=== PATIENT | female | born 1985 | race American Indian/Alaskan Native ===

== ENCOUNTER 2016-11-03 11:31 | Emergency (ER) | payer MEDICAID ==
[2016-11-03 12:19] VITALS: BP 97/68
--- NOTE | 2016-11-03 13:14 | EDM.PDOC ---
Scribed by Rita Cline 11/03/16 1309 for Hal Griffin MD ED HPI GENERAL MEDICAL PROBLEM - General Chief Complaint: General Stated Complaint: [id number] RIGHT SIDE RIBS FELL Time Seen by Provider: 11/03/16 12:08 Source of Information: Reports: Patient, RN, RN Notes Reviewed History Limitations: Reports: No Limitations - History of Present Illness INITIAL COMMENTS - FREE TEXT/NARRATIVE: Complaint of right rib pain substernal from a fall onto concrete about 7 to 9 days ago. Patient reports it hurts to breath and move. Denies cough, fever or SOB. Location: Reports: Chest Quality: Reports: Ache Severity: Severe Improves with: Reports: None Worsens with: Reports: None Associated Symptoms: Reports: No Other Symptoms Right Lower Chest Pain Score (Numeric/FACES): 8 - Related Data Allergies Allergy/AdvReac Type Severity Reaction Status Date / Time vancomycin Allergy Other Verified 11/03/16 12:18 Home Meds: Home Meds clonazePAM [Clonazepam] 0.5 mg PO DAILY 10/20/13 [History] Past Medical History - Past Health History Medical/Surgical History: Denies Medical/Surgical History HEENT History: Reports: Impaired Vision Other HEENT History: wears glasses Cardiovascular History: Reports: None Respiratory History: Reports: None Gastrointestinal History: Reports: None Genitourinary History: Reports: None 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 Other OB/BYN History: x2 Musculoskeletal History: Reports: None Neurological History: Reports: None Psychiatric History: Reports: Depression, Panic Attack Endocrine/Metabolic History: Reports: None Hematologic History: Reports: None Immunologic History: Reports: None Oncologic (Cancer) History: Reports: None Dermatologic History: Reports: None - Infectious Disease History Infectious Disease History: Reports: Chicken Pox - Past Surgical History Head Surgeries/Procedures: Reports: None Social & Family History - Family History Family Medical History: Noncontributory - Tobacco Use Smoking Status *Q: Current Every Day Smoker Years of Tobacco use: 10 Packs/Tins Daily: 0.5 Used Tobacco, but Quit: No Second Hand Smoke Exposure: No - Caffeine Use Caffeine Use: Reports: Soda - Alcohol Use Days Per Week of Alcohol Use: 0 - Recreational Drug Use Recreational Drug Use: No Drug Use in Last 12 Months: No - Living Situation & Occupation Living situation: Reports: with Significant Other Occupation: Employed ED [facility] GENERAL - Review of Systems Review Of Systems: ROS reveals no pertinent complaints other than HPI. ED EXAM, GENERAL - Physical Exam Exam: See Below Exam Limited By: No Limitations General Appearance: Alert, WD/WN, No Apparent Distress Neck: Normal Inspection, Supple, Non-Tender, Full Range of Motion Respiratory/Chest: Other (Except resoling bruises at right posterior and lateral chest wall with tenderness at middle ribs. No visible swelling or deformity. ) GI/Abdominal: Normal Bowel Sounds, Soft, Non-Tender, No Organomegaly, No Distention, No Abnormal Bruit, No Mass (Female) Exam: Deferred Rectal (Female) Exam: Deferred Back Exam: Normal Inspection, Full Range of Motion, NT Extremities: Normal Inspection, Normal Range of Motion, Non-Tender, Normal Capillary Refill, No Pedal Edema Neurological: Alert, Oriented, CN II-XII Intact, Normal Cognition, Normal Gait, Normal Reflexes, No Motor/Sensory Deficits Psychiatric: Normal Affect, Normal Mood Course - Vital Signs Last Recorded V/S: Last Vital Signs Temp 36.9 C 11/03/16 12:00 Pulse 76 11/03/16 12:00 Resp 18 11/03/16 12:00 BP 97/68 11/03/16 12:00 Pulse Ox 100 11/03/16 12:00 - Radiology Interpretation Free Text/Narrative:: Right ribs: Normal right rib x-rays. See rad report. Departure - Departure Time of Disposition: 13:08 Disposition: Home, Self-Care 01 Condition: Good Clinical Impression: Chest wall contusion Qualifiers: Encounter type: initial encounter Laterality: right Qualified Code(s): S20.211A - Contusion of right front wall of thorax, initial encounter - Discharge Information Instructions: Chest Wall Pain, [id number], Contusion, [id number] Forms: ED Department Discharge Additional Instructions: Tylenol or Ibuprofen as needed pain. Follow up in clinic in 1 to 2 weeks if not improving. I have read and agree with the documentation that has been completed regarding this visit. By signing this record, I attest that the documentation was completed in my physical presence and is an accurate record of the encounter.
== END 2016-11-03 13:19 | disposition home or self-care (01) ==
LOC: DL.ED 11:31
DX: S20.211A Contusion of right front wall of thorax, initial encounter (principal); F32.9 Major depressive disorder, single episode, unspecified; F41.0 Panic disorder [episodic paroxysmal anxiety]; F17.210 Nicotine dependence, cigarettes, uncomplicated; Z79.899 Other long term (current) drug therapy; Z88.1 Allergy status to other antibiotic agents; W01.0XXA Fall on same level from slipping, tripping and stumbling without subsequent striking against object, initial encounter
CPT/HCPCS: 71100-RT; 99283

== ENCOUNTER 2016-11-21 16:47 | Emergency (ER) | payer MEDICAID ==
[2016-11-21 16:59] VITALS: BP 134/98
[2016-11-21] MEDS ORDERED: MVI, Adult with Vitamin K 10 ML, Folic Acid 1 MG, Thiamine 100 MG in Lactated Ringers 1... IV ONE ×4 (17:02)
--- NOTE | 2016-11-21 17:13 | EDM.PDOCBH ---
ED HPI GENERAL MEDICAL PROBLEM - General Chief Complaint: Behavioral/Psych Stated Complaint: GOING TO PASS OUT, ANXIETY, [id number] Time Seen by Provider: 11/21/16 17:00 Source of Information: Reports: Patient History Limitations: Reports: No Limitations - History of Present Illness INITIAL COMMENTS - FREE TEXT/NARRATIVE: This 31 yo female patient reports to the ED with a panic/anxiety attack. The patient reports she has been drinking ETOH daily for the past 5 days and has had similar symptoms after drinking in the past. The patient reports she is not able to fill her anxiety medications until tomorrow. The patient reports her hands have been numb and she feels jittery. Onset: Today, Sudden Duration: Constant, Getting Worse Location: Reports: Generalized Quality: Reports: Other Severity: Severe Improves with: Reports: None Worsens with: Reports: None Associated Symptoms: Reports: No Other Symptoms - Related Data Allergies Allergy/AdvReac Type Severity Reaction Status Date / Time vancomycin Allergy Other Verified 11/21/16 16:53 Home Meds: Home Meds clonazePAM [Clonazepam] 0.5 mg PO DAILY 10/20/13 [History] hydrOXYzine Pamoate [Hydroxyzine Pamoate] 50 mg PO TID PRN 11/21/16 [History] Past Medical History - Past Health History Medical/Surgical History: Denies Medical/Surgical History HEENT History: Reports: Impaired Vision Other HEENT History: wears glasses Cardiovascular History: Reports: None Respiratory History: Reports: None Gastrointestinal History: Reports: None Genitourinary History: Reports: None 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 Other OB/BYN History: x2 Musculoskeletal History: Reports: None Neurological History: Reports: None Psychiatric History: Reports: Depression, Panic Attack Endocrine/Metabolic History: Reports: None Hematologic History: Reports: None Immunologic History: Reports: None Oncologic (Cancer) History: Reports: None Dermatologic History: Reports: None - Infectious Disease History Infectious Disease History: Reports: Chicken Pox - Past Surgical History Head Surgeries/Procedures: Reports: None Social & Family History - Family History Family Medical History: Noncontributory - Tobacco Use Smoking Status *Q: Current Every Day Smoker Years of Tobacco use: 10 Packs/Tins Daily: 0.5 Used Tobacco, but Quit: No Second Hand Smoke Exposure: No - Caffeine Use Caffeine Use: Reports: Soda - Alcohol Use Days Per Week of Alcohol Use: 0 - Recreational Drug Use Recreational Drug Use: No Drug Use in Last 12 Months: No - Living Situation & Occupation Living situation: Reports: with Significant Other Occupation: Employed ED ROS GENERAL - Review of Systems Review Of Systems: ROS reveals no pertinent complaints other than HPI. ED EXAM, BEHAVIORAL HEALTH - Physical Exam Exam: See Below Exam Limited By: No Limitations General Appearance: Alert, WD/WN, Moderate Distress, Thin Eye Exam: Bilateral Eye: EOMI, Normal Inspection, PERRL Ears: Normal External Exam, Normal Canal, Hearing Grossly Normal, Normal TMs Nose: Normal Inspection, Normal Mucosa, No Blood Throat/Mouth: Normal Inspection, Normal Lips, Normal Teeth, Normal Gums, Normal Oropharynx, Normal Voice, No Airway Compromise Head: Atraumatic, Normocephalic Neck: Normal Inspection, Supple, Non-Tender, Full Range of Motion Respiratory/Chest: No Respiratory Distress, Lungs Clear, Normal Breath Sounds, No Accessory Muscle Use, Chest Non-Tender Cardiovascular: Normal Peripheral Pulses, Regular Rate, Rhythm, No Edema, No Gallop, No JVD, No Murmur, No Rub GI/Abdominal: Normal Bowel Sounds, Soft, Non-Tender, No Organomegaly, No Distention, No Abnormal Bruit, No Mass (Female) Exam: Deferred Rectal (Female) Exam: Deferred Back Exam: Normal Inspection, Full Range of Motion, NT Extremities: Normal Inspection, Normal Range of Motion, Non-Tender, Normal Capillary Refill, No Pedal Edema Neurological: Alert, CN II-XII Intact, Normal Cognition, No Motor/Sensory Deficits, Oriented x 3 Psychiatric: Restless, Agitated Skin Exam: Warm, Dry, Intact, Normal color, No rash COURSE, BEHAVIORAL HEALTH COMP - Course Vital Signs: Last Vital Signs Temp 38.3 C H 11/21/16 16:56 Pulse 100 11/21/16 16:56 Resp 18 11/21/16 16:56 BP 134/98 H 11/21/16 16:56 Pulse Ox 99 11/21/16 16:56 Orders, Labs, Meds: Active Orders 24 hr Category Date Time Status MVI, Adult with Vitamin K [Infuvite Adult] 10 ml Med 11/21/16 17:02 Active Folic Acid 1 mg Thiamine [Vitamin B-1] 100 mg Lactated Ringers [Ringers, Lactated] 1,000 ml IV ONETIME Medication Orders Multivitamins/Minerals 10 ml/Folic Acid 1 mg/ Thiamine HCl 100 mg/ Lactated Ringer's 1,011.2 mls @ 999 mls/hr IV ONETIME ONE Stop: 11/21/16 18:02 Last Admin: 11/21/16 17:13 Dose: 999 mls/hr Laboratory Tests 11/21/16 11/21/16 Range/Units 17:10 17:10 WBC 7.7 (5.0-10.0) 10^3/uL RBC 4.27 (4.2-5.4) 10^6/uL Hgb 12.9 (12.0-16.0) g/dL Hct 38.8 (37.0-47.0) % MCV 90.9 (80-100) fL MCH 30.2 (27.0-34.0) pg MCHC 33.2 (33.0-35.0) g/dL Plt Count 218 (150-450) 10^3/uL Neut % (Auto) 78.2 H (42.2-75.2) % Lymph % (Auto) 14.6 L (20.5-50.1) % [place] % (Auto) 6.1 (2-8) % Eos % (Auto) 1.0 (1.0-3.0) % Baso % (Auto) 0.1 (0.0-1.0) % Sodium 137 (135-145) mmol/L Potassium 3.6 (3.6-5.0) mmol/L Chloride 100 L (101-111) mmol/L Carbon Dioxide 27.0 (21.0-31.0) mmol/L Anion Gap 13.6 BUN 10 (7-18) mg/dL Creatinine 0.5 L (0.6-1.3) mg/dL Est Cr Clr Drug Dosing 131.30 mL/min Estimated GFR (MDRD) > 60 BUN/Creatinine Ratio 20.00 Glucose 87 (74-105) mg/dL Calcium 8.9 (8.4-10.2) mg/dl Total Bilirubin 0.8 (0.2-1.0) mg/dL AST 23 (10-42) IU/L ALT 16 (10-60) IU/L Alkaline Phosphatase 84 (42-121) IU/L Total Protein 7.4 (6.7-8.2) g/dl Albumin 4.2 (3.2-5.5) g/dl Globulin 3.2 Albumin/Globulin Ratio 1.31 Medications Generic Name Dose Route Start Last Admin Trade Name Pepe PRN Reason Stop Dose Admin Multivitamins/Minerals 10 ml/ 1,011.2 mls @ 999 mls/hr 11/21/16 17:02 17:13 Folic Acid 1 mg/ Thiamine HCl IV 11/21/16 18:02 999 mls/hr 100 mg/ Lactated Ringer's ONETIME ONE Administration Discontinued Medications Generic Name Dose Route Start Last Admin Trade Name Pepe PRN Reason Stop Dose Admin Clonazepam 0.5 mg 11/21/16 17:19 11/21/16 17:25 Klonopin PO 11/21/16 17:20 0.5 mg ONETIME ONE Administration Departure - Departure Time of Disposition: 17:47 Disposition: Home, Self-Care 01 Condition: Fair Clinical Impression: Anxiety - Discharge Information Instructions: Panic Attacks, Gzwh-[id number] Forms: ED Department Discharge Care Plan Goals: The patient was advised of the examination and lab results during the visit. The patient was given a liter of fluids with multivitamins, thiamine and folic acid mixed in during the visit. The patient was also given an oral dose of Klonopin while in the ED. The patient was discharged with a script for Klonopin (0.5 mg) #4 to take 1 by mouth 2 times per day. The [facility] and further treatment. If the patient has any additional symptoms or concerns, the patient should visit her primary care facility or return to the emergency department. - My Orders Last 24 Hours: My Active Orders 11/21/16 17:02 MVI, Adult with Vitamin K [Infuvite Adult] 10 ml Folic Acid 1 mg Thiamine [ Vitamin B-1] 100 mg Lactated Ringers [Ringers, Lactated] 1,000 ml IV ONETIME - Assessment/Plan Last 24 Hours: My Active Orders 11/21/16 17:02 MVI, Adult with Vitamin K [Infuvite Adult] 10 ml Folic Acid 1 mg Thiamine [ Vitamin B-1] 100 mg Lactated Ringers [Ringers, Lactated] 1,000 ml IV ONETIME
[2016-11-21] MEDS ORDERED: ClonazePAM 0.5 MG Tab PO ONE (17:19)
[2016-11-21 17:45] LABS: CHLORIDE,CL 100 mmol/L (101-111); SODIUM,NA 137 mmol/L (135-145)
== END 2016-11-21 18:30 | disposition home or self-care (01) ==
LOC: DL.ED 16:47
DX: F41.9 Anxiety disorder, unspecified (principal); Z88.1 Allergy status to other antibiotic agents; F17.210 Nicotine dependence, cigarettes, uncomplicated
CPT/HCPCS: 36415; 80053; 85025; 96365; 99284; A9270; J3411; J7120; J3490

== ENCOUNTER 2017-04-17 12:18 | Emergency (ER) | payer MEDICAID ==
--- NOTE | 2017-04-17 12:39 | EDM.PDOCBH ---
ED HPI GENERAL MEDICAL PROBLEM - General Chief Complaint: Behavioral/Psych Stated Complaint: by ambulance Time Seen by Provider: 04/17/17 12:20 Source of Information: Reports: Patient History Limitations: Reports: No Limitations - History of Present Illness INITIAL COMMENTS - FREE TEXT/NARRATIVE: This 32 yo female patient was brought to the emergency department by [facility] due to a panic attack. This patient reports she has had similar episodes in the past. The patient reports she took her Clonazepam at noon, but continued to have symptoms. The patient reports she has had increased stress in her life, but did not want to talk about it. Onset: Today Duration: Minutes:, Improving Location: Reports: Generalized Severity: Severe Improves with: Reports: None Worsens with: Reports: None Treatments FAN BLADE TRUER: Reports: Other Medication(s) - Related Data Allergies Allergy/AdvReac Type Severity Reaction Status Date / Time vancomycin Allergy Other Verified 11/21/16 16:53 Home Meds: Home Meds clonazePAM [Clonazepam] 0.5 mg PO DAILY 10/20/13 [History] hydrOXYzine Pamoate [Hydroxyzine Pamoate] 50 mg PO TID PRN 11/21/16 [History] Past Medical History - Past Health History Medical/Surgical History: Denies Medical/Surgical History HEENT History: Reports: Impaired Vision Other HEENT History: wears glasses Cardiovascular History: Reports: None Respiratory History: Reports: None Gastrointestinal History: Reports: None Genitourinary History: Reports: None 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 Other OB/BYN History: x2 Musculoskeletal History: Reports: None Neurological History: Reports: None Psychiatric History: Reports: Anxiety, Depression, Panic Attack Endocrine/Metabolic History: Reports: None Hematologic History: Reports: None Immunologic History: Reports: None Oncologic (Cancer) History: Reports: None Dermatologic History: Reports: None - Infectious Disease History Infectious Disease History: Reports: Chicken Pox - Past Surgical History Head Surgeries/Procedures: Reports: None Social & Family History - Family History Family Medical History: Noncontributory - Tobacco Use Smoking Status *Q: Never Smoker Years of Tobacco use: 10 Packs/Tins Daily: 0.5 Used Tobacco, but Quit: No Second Hand Smoke Exposure: No - Caffeine Use Caffeine Use: Reports: Soda - Alcohol Use Days Per Week of Alcohol Use: 0 Number of Drinks Per Day: 10 Total Drinks Per Week: 0 - Recreational Drug Use Recreational Drug Use: No Drug Use in Last 12 Months: No - Living Situation & Occupation Living situation: Reports: with Significant Other Occupation: Employed ED ROS GENERAL - Review of Systems Review Of Systems: ROS reveals no pertinent complaints other than HPI. ED EXAM, BEHAVIORAL HEALTH - Physical Exam Exam: See Below Exam Limited By: No Limitations General Appearance: Alert, WD/WN, No Apparent Distress Eye Exam: Bilateral Eye: EOMI, Normal Inspection, PERRL Ears: Normal External Exam, Normal Canal, Hearing Grossly Normal, Normal TMs Nose: Normal Inspection, Normal Mucosa, No Blood Throat/Mouth: Normal Inspection, Normal Lips, Normal Teeth, Normal Gums, Normal Oropharynx, Normal Voice, No Airway Compromise Head: Atraumatic, Normocephalic Neck: Normal Inspection, Supple, Non-Tender, Full Range of Motion Respiratory/Chest: No Respiratory Distress, Lungs Clear, Normal Breath Sounds, No Accessory Muscle Use, Chest Non-Tender Cardiovascular: Normal Peripheral Pulses, Regular Rate, Rhythm, No Edema, No Gallop, No JVD, No Murmur, No Rub GI/Abdominal: Normal Bowel Sounds, Soft, Non-Tender, No Organomegaly, No Distention, No Abnormal Bruit, No Mass (Female) Exam: Deferred Rectal (Female) Exam: Deferred Back Exam: Normal Inspection, Full Range of Motion, NT Extremities: Normal Inspection, Normal Range of Motion, Non-Tender, Normal Capillary Refill, No Pedal Edema Neurological: Alert, Normal Mood/Affect, CN II-XII Intact, Normal Cognition, Normal Gait, Normal Reflexes, No Motor/Sensory Deficits, Oriented x 3 Psychiatric: Alert, Normal Cognition, Oriented, Other (anxious) Skin Exam: Warm, Dry, Intact, Normal color, No rash COURSE, BEHAVIORAL HEALTH COMP - Course Vital Signs: Last Vital Signs Temp 36.8 C 04/17/17 12: Pulse 88 04/17/17 12:27 Resp 16 04/17/17 12:27 BP 122/84 04/17/17 12:27 Pulse Ox 98 04/17/17 12:27 Departure - Departure Time of Disposition: 12:35 Disposition: Home, Self-Care 01 Condition: Fair Clinical Impression: Anxiety - Discharge Information Instructions: Panic Attacks, [id number] Forms: ED Department Discharge Care Plan Goals: The patient was advised of the examination results during the visit. The patient was encouraged to continue to take her medications as prescribed. The patient was encouraged to follow-up with counseling as scheduled. If the patient has any additional symptoms or concerns, the patient was encouraged to follow-up with her primary care facility or return to the emergency department.
[2017-04-17 12:56] VITALS: BP 117/78
== END 2017-04-17 12:52 | disposition home or self-care (01) ==
LOC: DL.ED 12:18
DX: F41.9 Anxiety disorder, unspecified (principal); Z88.1 Allergy status to other antibiotic agents; Z79.899 Other long term (current) drug therapy
CPT/HCPCS: 99284

== ENCOUNTER 2017-09-15 14:35 | Emergency (ER) | payer MEDICAID ==
[2017-09-15 14:59] VITALS: BP 113/85
[2017-09-15] MEDS: diphenhydrAMINE 50 MG Cap PO ONE (15:18)
[2017-09-15] MEDS: methylPREDNISolone Sodium Succinate 125 MG/2 ML SDV IM ONE (15:57)
--- NOTE | 2017-09-15 18:41 | EDM.PDOC ---
Scribed by Rita Cline 09/15/17 [id number] for Natty Shankar NP ED HPI GENERAL MEDICAL PROBLEM - General Chief Complaint: Allergic Reaction Stated Complaint: [id number] POISON OAK/TEE ALLERGIC REACTION Time Seen by Provider: 09/15/17 15:37 Source of Information: Reports: Patient, RN, RN Notes Reviewed History Limitations: Reports: No Limitations - History of Present Illness INITIAL COMMENTS - FREE TEXT/NARRATIVE: Patient presents to ER with complaint of allergic reaction to possibly poison tee/oak. Exposed was Friday evening. Noticed itching on Friday after picking August berr. Today noticed her face swelling, blistering and weeping. Patient states she has used spray Benadryl. Onset Date: 09/13/17 Duration: Getting Worse Location: Reports: Generalized Quality: Reports: Ache Severity: Moderate Improves with: Reports: None Worsens with: Reports: None Associated Symptoms: Reports: No Other Symptoms Bilateral Eye Pain Score (Numeric/FACES): 10 - Related Data Allergies Allergy/AdvReac Type Severity Reaction Status Date / Time vancomycin Allergy Other Verified 09/15/17 14:57 Home Meds: Home Meds clonazePAM [Clonazepam] 0.5 mg PO DAILY 10/20/13 [History] hydrOXYzine Pamoate [Hydroxyzine Pamoate] 50 mg PO TID PRN 11/21/16 [History] Past Medical History - Past Health History Medical/Surgical History: Denies Medical/Surgical History HEENT History: Reports: Impaired Vision Other HEENT History: wears glasses Cardiovascular History: Reports: None Respiratory History: Reports: None Gastrointestinal History: Reports: None Genitourinary History: Reports: None 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 MACHINIST SUPERVISOR History: x2 Musculoskeletal History: Reports: None Neurological History: Reports: None Psychiatric History: Reports: Anxiety, Depression, Panic Attack Endocrine/Metabolic History: Reports: None Hematologic History: Reports: None Immunologic History: Reports: None Oncologic (Cancer) History: Reports: None Dermatologic History: Reports: None - Infectious Disease History Infectious Disease History: Reports: Chicken Pox - Past Surgical History Head Surgeries/Procedures: Reports: None Social & Family History - Family History Family Medical History: Noncontributory - Tobacco Use Smoking Status *Q: Current Every Day Smoker Years of Tobacco use: 12 Packs/Tins Daily: 0.5 Second Hand Smoke Exposure: No - Caffeine Use Caffeine Use: Reports: Soda - Recreational Drug Use Recreational Drug Use: No - Living Situation & Occupation Living situation: Reports: with Significant Other Occupation: Employed ED ROS ALLERGIC REACTION - Review of Systems Review Of Systems: ROS reveals no pertinent complaints other than HPI. ED EXAM GENERAL NO PERIP PULSE - Physical Exam Exam: See Below Exam Limited By: No Limitations General Appearance: Other (itching) Eye Exam: Bilateral Eye: EOMI, Normal Inspection, PERRL Ears: Normal External Exam, Normal Canal, Hearing Grossly Normal, Normal TMs Nose: Normal Inspection, Normal Mucosa, No Blood Throat/Mouth: Normal Inspection, Normal Lips, Normal Teeth, Normal Gums, Normal Oropharynx, Normal Voice, No Airway Compromise Head: Atraumatic, Normocephalic Neck: Normal Inspection, Supple, Non-Tender, Full Range of Motion Respiratory/Chest: No Respiratory Distress, Lungs Clear, Normal Breath Sounds, No Accessory Muscle Use, Chest Non-Tender Cardiovascular: Normal Peripheral Pulses, Regular Rate, Rhythm, No Edema, No Gallop, No JVD, No Murmur, No Rub GI/Abdominal: Normal Bowel Sounds, Soft, Non-Tender, No Organomegaly, No Distention, No Abnormal Bruit, No Mass (Female) Exam: Deferred Rectal (Female) Exam: Deferred Back Exam: Normal Inspection, Full Range of Motion, NT Extremities: Normal Inspection, Normal Range of Motion, Non-Tender, Normal Capillary Refill, No Pedal Edema Neurological: Alert, Oriented, CN II-XII Intact, Normal Cognition, Normal Gait, Normal Reflexes, No Motor/Sensory Deficits Psychiatric: Anxious, Other (itching) Skin Exam: Other (face blisters weeping. Red rash face, arms and legs. ) Lymphatic: No Adenopathy Course - Vital Signs Last Recorded V/S: Last Vital Signs Temp 99.8 F 09/15/17 14:56 Pulse 84 09/15/17 14:56 Resp 18 09/15/17 14:56 BP 113/85 09/15/17 14:56 Pulse Ox 88 L 09/15/17 14:56 - Orders/Labs/Meds Meds: Medications Discontinued Medications Generic Name Dose Route Start Last Admin Trade Name Freq PRN Reason Stop Dose Admin Diphenhydramine HCl 50 mg 09/15/17 15:13 09/15/17 15:18 Benadryl PO 09/15/17 15:14 50 mg ONETIME ONE Administration Methylprednisolone Sodium Succinate 125 mg 09/15/17 15:49 09/15/17 15:57 Solu-Medrol IM 09/15/17 15:50 125 mg ONETIME ONE Administration Departure - Departure Time of Disposition: 16:34 Disposition: Home, Self-Care 01 Condition: Fair Clinical Impression: Poison tee dermatitis Contact dermatitis Qualifiers: Contact dermatitis type: irritant Contact dermatitis trigger: non-food plants Qualified Code(s): L24.7 - Irritant contact dermatitis due to plants, except food - Discharge Information *PRESCRIPTION DRUG MONITORING PROGRAM REVIEWED*: No *COPY OF PRESCRIPTION DRUG MONITORING REPORT IN PATIENT NOMAN: No Instructions: Allergies, Adult, Pyjp-ah-[id number], Contact Dermatitis, [id number] , Rash, [id number] Forms: ED Department Discharge Additional Instructions: May use Benadryl or Certrizine for antihistamine RX: Prednisone, Triamcinolone ointment Follow up with your primary care facility I have read and agree with the documentation that has been completed regarding this visit. By signing this record, I attest that the documentation was completed in my physical presence and is an accurate record of the encounter.
== END 2017-09-15 15:57 | disposition home or self-care (01) ==
LOC: DL.ED 14:35
DX: L23.7 Allergic contact dermatitis due to plants, except food (principal); L24.7 Irritant contact dermatitis due to plants, except food; F17.210 Nicotine dependence, cigarettes, uncomplicated; F41.9 Anxiety disorder, unspecified; F32.9 Major depressive disorder, single episode, unspecified; Z88.1 Allergy status to other antibiotic agents
CPT/HCPCS: 96372; 99283; J2930; Q0163

== ENCOUNTER 2017-10-11 17:33 | Emergency (ER) | payer MEDICAID ==
[2017-10-11] MEDS ORDERED: LORazepam 2 MG/ML Syringe IVPUSH ONE (17:40)
[2017-10-11] MEDS ORDERED: Sodium Chloride 0.9% 10 ML Syringe FLUSH PRN (17:40)
[2017-10-11] MEDS ORDERED: Sodium Chloride 0.9% 1,000 ML IV ONE (17:40)
[2017-10-11 18:20] LABS: ANION GAP 11.5; CHLORIDE,CL 99 mmol/L (101-111); SODIUM,NA 134 mmol/L (135-145)
--- NOTE | 2017-10-11 19:12 | EDM.PDOCBH ---
Scribed by Rita Cline 10/11/171911 for Hal Griffin MD ED HPI GENERAL MEDICAL PROBLEM - General Chief Complaint: Behavioral/Psych Stated Complaint: BY AMBULANCE Time Seen by Provider: 10/11/17 17:35 Source of Information: Reports: Patient, EMS, EMS Notes Reviewed, RN, RN Notes Reviewed History Limitations: Reports: Altered Mental Status - History of Present Illness INITIAL COMMENTS - FREE TEXT/NARRATIVE: Patient presents to ER by [facility] with complaint of tremor , headache, anxiety, and mild confusion which she attributes to running out of her clonazepam3 days ago. Patient states she was to have her medication refilled but the pharmacy did not receive the order. She began to feel anxious and have tremor last evening so she self medicated with alcohol. She denies any injury, fever, chills or other complaints. Onset: Gradual Duration: Getting Worse Location: Reports: Generalized Severity: Severe Improves with: Reports: None Worsens with: Reports: None Associated Symptoms: Reports: No Other Symptoms - Related Data Allergies Allergy/AdvReac Type Severity Reaction Status Date / Time vancomycin Allergy Other Verified 09/15/17 14:57 Home Meds: Home Meds clonazePAM [Clonazepam] 1 mg PO BID PRN 10/20/13 [History] hydrOXYzine pamoate [Hydroxyzine Pamoate] 50 mg PO TID PRN 11/21/16 [History] Past Medical History - Past Health History Medical/Surgical History: Denies Medical/Surgical History HEENT History: Reports: Impaired Vision Other HEENT History: wears glasses Cardiovascular History: Reports: None Respiratory History: Reports: None Gastrointestinal History: Reports: None Genitourinary History: Reports: None SOLE BUFFER History: Reports: None Other SOLE BUFFER History: x2 Musculoskeletal History: Reports: None Neurological History: Reports: None Psychiatric History: Reports: Anxiety, Depression, Panic Attack Endocrine/Metabolic History: Reports: None Hematologic History: Reports: None Immunologic History: Reports: None Oncologic (Cancer) History: Reports: None Dermatologic History: Reports: None - Infectious Disease History Infectious Disease History: Reports: Chicken Pox - Past Surgical History Head Surgeries/Procedures: Reports: None Social & Family History - Family History Family Medical History: Noncontributory - Caffeine Use Caffeine Use: Reports: Soda - Living Situation & Occupation Living situation: Reports: with Significant Other Occupation: Employed ED ROS GENERAL - Review of Systems Review Of Systems: ROS reveals no pertinent complaints other than HPI. ED EXAM, BEHAVIORAL HEALTH - Physical Exam Exam: See Below Exam Limited By: Other (mild confusion) General Appearance: Alert, Anxious Eye Exam: Bilateral Eye: EOMI, Nystagmus (lateral gaze), PERRL Ears: Normal External Exam, Normal Canal, Hearing Grossly Normal, Normal TMs Nose: Normal Inspection, Normal Mucosa, No Blood Throat/Mouth: Normal Lips, Normal Teeth, Normal Gums, Normal Oropharynx, Normal Voice, No Airway Compromise, Other (dry oral membranes) Head: Atraumatic, Normocephalic Neck: Normal Inspection, Supple, Non-Tender, Full Range of Motion Respiratory/Chest: No Respiratory Distress, Lungs Clear, Normal Breath Sounds, No Accessory Muscle Use, Chest Non-Tender Cardiovascular: Regular Rate, Rhythm, Tachycardia GI/Abdominal: Other (benign') (Female) Exam: Deferred Rectal (Female) Exam: Deferred Back Exam: Normal Inspection Extremities: Normal Inspection Neurological: Alert, No Motor/Sensory Deficits, Oriented x 3, Tremor ( significant to bilateral upper and lower extremities, lower face. ), Other ( mild confusion) Psychiatric: Tearful, Other (anxious) Skin Exam: Warm, Dry, Intact, Normal color, No rash COURSE, BEHAVIORAL HEALTH COMP - Course Vital Signs: Last Vital Signs Temp 36.9 C 10/11/17 17:36 Pulse 107 H 10/11/17 17:36 Resp 18 10/11/17 17:36 BP 132/96 H 10/11/17 17:36 Pulse Ox 98 10/11/17 17:36 Orders, Labs, Meds: Active Orders 24 hr Category Date Time Status Blood Glucose Check, Bedside [RC] ONETIME Care 10/11/17 17:40 Active Peripheral IV Care [RC] . DIRECTED Care 10/11/17 17:41 Active DRUG SCREEN URINE BIORAD [URCHEM] Stat Lab 10/11/17 18:15 Ordered HCG QUALITATIVE,URINE [URCHEM] Stat Lab 10/11/17 18:15 Ordered UA W/MICROSCOPIC [URIN] Stat Lab 10/11/17 18:15 Ordered Sodium Chloride 0.9% [Saline Flush] Med 10/11/17 17:40 Active 10 ml FLUSH ASDIRECTED PRN Peripheral IV Insertion Adult [OM.PC] Stat Oth 10/11/17 17:40 Ordered Medication Orders Sodium Chloride (Saline Flush) 10 ml FLUSH ASDIRECTED PRN PRN Reason: Keep Vein Open Last Admin: 10/11/17 17:42 Dose: 10 ml Laboratory Tests 10/11/17 10/11/17 10/11/17 Range/Units 17:50 17:50 18:15 WBC 5.1 (5.0-10.0) 10^3/uL RBC 4.14 L (4.2-5.4) 10^6/uL Hgb 12.6 (12.0-16.0) g/dL Hct 38.5 (37.0-47.0) % MCV 93.0 (80-100) fL MCH 30.4 (27.0-34.0) pg MCHC 32.7 L (33.0-35.0) g/dL Plt Count 223 (150-450) 10^3/uL Neut % (Auto) 70.5 (42.2-75.2) % Lymph % (Auto) 17.6 L (20.5-50.1) % [place] % (Auto) 9.1 H (2-8) % Eos % (Auto) 2.4 (1.0-3.0) % Baso % (Auto) 0.4 (0.0-1.0) % Sodium 134 L (135-145) mmol/L Potassium 3.5 L (3.6-5.0) mmol/L Chloride 99 L (101-111) mmol/L Carbon Dioxide 27.0 (21.0-31.0) mmol/L Anion Gap 11.5 BUN 10 (7-18) mg/dL Creatinine 0.4 L (0.6-1.3) mg/dL Est Cr Clr Drug Dosing 162.65 mL/min Estimated GFR (MDRD) > 60 BUN/Creatinine Ratio 25.00 Glucose 91 (74-105) mg/dL POC Glucose (70-105) mg/dl Calcium 8.8 (8.4-10.2) mg/dl Total Bilirubin 0.7 (0.2-1.0) mg/dL AST 24 (10-42) IU/L ALT 15 (10-60) IU/L Alkaline Phosphatase 51 (42-121) IU/L Total Protein 7.6 (6.7-8.2) g/dl Albumin 4.6 (3.2-5.5) g/dl Globulin 3.0 Albumin/Globulin Ratio 1.53 Urine Color Yellow (YELLOW) Urine Appearance Clear (CLEAR) Urine pH 7.5 (5.0-9.0) Ur Specific [place] 1.010 (1.005-1.030) Urine Protein Negative (NEGATIVE) Urine Glucose (UA) Negative (NEGATIVE) Urine Ketones Negative (NEGATIVE) Urine Occult Blood Negative (NEGATIVE) Urine Nitrite Negative (NEGATIVE) Urine Bilirubin Negative (NEGATIVE) Urine Urobilinogen 0.2 (0.2-1.0) mg/dL Ur Leukocyte Esterase Negative (NEGATIVE) Urine RBC Not seen /HPF Urine WBC Not seen (0-5/HPF) /HPF Ur Epithelial Cells Rare /HPF Urine Bacteria Rare (0-FEW/HPF) /HPF Urine HCG, Qual Urine Opiates Screen (NEGATIVE) Ur Oxycodone Screen (NEGATIVE) Urine Methadone Screen (NEGATIVE) Ur Barbiturates Screen (NEGATIVE) U Tricyclic Antidepress (NEGATIVE) Ur Phencyclidine Scrn (NEGATIVE) Ur Amphetamine Screen (NEGATIVE) U Methamphetamines Scrn (NEGATIVE) Urine MDMA Screen (NEGATIVE) U Benzodiazepines Scrn (NEGATIVE) Urine Cocaine Screen (NEGATIVE) U Marijuana (THC) Screen (NEGATIVE) Ethyl Alcohol < 5 mg/dL 10/11/17 10/11/17 10/11/17 Range/Units 18:15 18:15 18:29 WBC (5.0-10.0) 10^3/uL RBC (4.2-5.4) 10^6/uL Hgb (12.0-16.0) g/dL Hct (37.0-47.0) % MCV (80-100) fL MCH (27.0-34.0) pg MCHC (33.0-35.0) g/dL Plt Count (150-450) 10^3/uL Neut % (Auto) (42.2-75.2) % Lymph % (Auto) (20.5-50.1) % [place] % (Auto) (2-8) % Eos % (Auto) (1.0-3.0) % Baso % (Auto) (0.0-1.0) % Sodium (135-145) mmol/L Potassium (3.6-5.0) mmol/L Chloride (101-111) mmol/L Carbon Dioxide (21.0-31.0) mmol/L Anion Gap BUN (7-18) mg/dL Creatinine (0.6-1.3) mg/dL Est Cr Clr Drug Dosing mL/min Estimated GFR (MDRD) BUN/Creatinine Ratio Glucose (74-105) mg/dL POC Glucose 82 (70-105) mg/dl Calcium (8.4-10.2) mg/dl Total Bilirubin (0.2-1.0) mg/dL AST (10-42) IU/L ALT (10-60) IU/L Alkaline Phosphatase (42-121) IU/L Total Protein (6.7-8.2) g/dl Albumin (3.2-5.5) g/dl Globulin Albumin/Globulin Ratio Urine Color (YELLOW) Urine Appearance (CLEAR) Urine pH (5.0-9.0) Ur Specific [place] (1.005-1.030) Urine Protein (NEGATIVE) Urine Glucose (UA) (NEGATIVE) Urine Ketones (NEGATIVE) Urine Occult Blood (NEGATIVE) Urine Nitrite (NEGATIVE) Urine Bilirubin (NEGATIVE) Urine Urobilinogen (0.2-1.0) mg/dL Ur Leukocyte Esterase (NEGATIVE) Urine RBC /HPF Urine WBC (0-5/HPF) /HPF Ur Epithelial Cells /HPF Urine Bacteria (0-FEW/HPF) /HPF Urine HCG, Qual Negative Urine Opiates Screen Negative (NEGATIVE) Ur Oxycodone Screen Negative (NEGATIVE) Urine Methadone Screen Negative (NEGATIVE) Ur Barbiturates Screen Negative (NEGATIVE) U Tricyclic Antidepress Negative (NEGATIVE) Ur Phencyclidine Scrn Negative (NEGATIVE) Ur Amphetamine Screen Negative (NEGATIVE) U Methamphetamines Scrn Negative (NEGATIVE) Urine MDMA Screen Negative (NEGATIVE) U Benzodiazepines Scrn Negative (NEGATIVE) Urine Cocaine Screen Negative (NEGATIVE) U Marijuana (THC) Screen Negative (NEGATIVE) Ethyl Alcohol mg/dL Medications Generic Name Dose Route Start Last Admin Trade Name Freq PRN Reason Stop Dose Admin Sodium Chloride 10 ml 10/11/17 17:40 10/11/17 17:42 Saline Flush FLUSH 10 ml ASDIRECTED PRN Administration Keep Vein Open Discontinued Medications Generic Name Dose Route Start Last Admin Trade Name Freq PRN Reason Stop Dose Admin Sodium Chloride 1,000 mls @ 999 mls/hr 10/11/17 17:40 10/11/17 17:46 Normal Saline IV 10/11/17 18:40 999 mls/hr .BOLUS ONE Administration Lorazepam 2 mg 10/11/17 17:40 10/11/17 17:47 Ativan IVPUSH 10/11/17 17:41 2 mg ONETIME ONE Administration Discharge vs Psych Eval/Treatment:: 10/11/17 19:11 Pt feels much better and tremors have resolved following tx in ER. Pt wishes to be D/C'd home, and plans to meat pickler her Klonopin 1mg Rx on Friday. Departure - Departure Time of Disposition: 19:08 Disposition: Home, Self-Care 01 Condition: Good Clinical Impression: History of anxiety Benzodiazepine withdrawal Qualifiers: Complication of substance-induced condition: with unspecified complication Qualified Code(s): F13.239 - Sedative, hypnotic or anxiolytic dependence with withdrawal, unspecified - Discharge Information Instructions: Benzodiazepine Withdrawal Forms: ED Department Discharge Additional Instructions: RX: Lorazepam 1mg: Take one tablet by mouth every 8 hours. *DO NOT DRIVE WHILE UNDER THE INFLUENCE OF THIS MEDICATION. Restart your clonazepam when you pick it up from pharmacy on Friday. Follow up with your doctor if any further problems. - My Orders Last 24 Hours: My Active Orders 10/11/17 17:40 Blood Glucose Check, Bedside [RC] ONETIME Sodium Chloride 0.9% [Saline Flush] 10 ml FLUSH ASDIRECTED PRN Peripheral IV Insertion Adult [OM.PC] Stat 10/11/17 17:41 Peripheral IV Care [RC] . DIRECTED 10/11/17 18:15 DRUG SCREEN URINE BIORAD [URCHEM] Stat HCG QUALITATIVE,URINE [URCHEM] Stat UA W/MICROSCOPIC [URIN] Stat - Assessment/Plan Last 24 Hours: My Active Orders 10/11/17 17:40 Blood Glucose Check, Bedside [RC] ONETIME Sodium Chloride 0.9% [Saline Flush] 10 ml FLUSH ASDIRECTED PRN Peripheral IV Insertion Adult [OM.PC] Stat 10/11/17 17:41 Peripheral IV Care [RC] . DIRECTED 10/11/17 18:15 DRUG SCREEN URINE BIORAD [URCHEM] Stat HCG QUALITATIVE,URINE [URCHEM] Stat UA W/MICROSCOPIC [URIN] Stat I have read and agree with the documentation that has been completed regarding this visit. By signing this record, I attest that the documentation was completed in my physical presence and is an accurate record of the encounter.
[2017-10-11] MEDS ORDERED: LORazepam 1 MG Tab ONE (19:17)
[2017-10-11 19:23] VITALS: BP 106/71
== END 2017-10-11 19:28 | disposition home or self-care (01) ==
LOC: DL.ED 17:33
DX: F13.239 Sedative, hypnotic or anxiolytic dependence with withdrawal, unspecified (principal); F41.9 Anxiety disorder, unspecified; Z88.1 Allergy status to other antibiotic agents
CPT/HCPCS: 36415; 80053; 80305; 81001; 81025; 82962; 85025; 96365; 96375; 99284; G0480; J2060; J7030; J7050

== ENCOUNTER 2017-11-29 12:05 | Emergency (ER) | payer MEDICAID ==
[2017-11-29 12:12] VITALS: BP 115/97
[2017-11-29] MEDS ORDERED: ClonazePAM 0.5 MG Tab PO ONE ×2 (12:23→13:12)
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
== END 2017-11-29 13:20 | disposition home or self-care (01) ==
LOC: DL.ED 12:05
DX: F41.0 Panic disorder [episodic paroxysmal anxiety] (principal); F43.0 Acute stress reaction; F17.210 Nicotine dependence, cigarettes, uncomplicated; Z88.1 Allergy status to other antibiotic agents
CPT/HCPCS: 99283; A9270

== ENCOUNTER 2018-06-29 11:21 | Emergency (ER) | payer MEDICAID ==
[2018-06-29 11:36] VITALS: BP 123/84
[2018-06-29] MEDS ORDERED: LORazepam 2 MG/ML Syringe IM ONE (11:53)
--- NOTE | 2018-06-29 13:26 | EDM.PDOCBH ---
ED HPI GENERAL MEDICAL PROBLEM - General Chief Complaint: Behavioral/Psych Stated Complaint: AMBULANCE Time Seen by Provider: 06/29/18 11:49 Source of Information: Reports: Patient, EMS, EMS Notes Reviewed, RN, RN Notes Reviewed History Limitations: Reports: No Limitations - History of Present Illness INITIAL COMMENTS - FREE TEXT/NARRATIVE: Patient presents to ER by [facility] with complaint of panic attack. She states she has not had access to her Clonopin in 3 days. Patient's speech is pressured, stattering and crying. Patient states tightness in the chest and numbness to right arm and right leg. She states she has had these symptoms in the past but not this severe. Onset: Gradual Duration: Getting Worse Location: Reports: Generalized Severity: Severe Improves with: Reports: None Worsens with: Reports: None Associated Symptoms: Reports: No Other Symptoms - Related Data Allergies Allergy/AdvReac Type Severity Reaction Status Date / Time vancomycin Allergy Other Verified 06/29/18 11:31 Home Meds: Home Meds clonazePAM [Clonazepam] 1 mg PO BID PRN 10/20/13 [History] hydrOXYzine pamoate [Hydroxyzine Pamoate] 50 mg PO TID PRN 11/21/16 [History] Past Medical History - Past Health History Medical/Surgical History: Denies Medical/Surgical History HEENT History: Reports: Impaired Vision Other HEENT History: wears glasses Cardiovascular History: Reports: None Respiratory History: Reports: None Gastrointestinal History: Reports: None Genitourinary History: Reports: None SPANISH SPEAKING NANNY History: Reports: Other SPANISH SPEAKING NANNY History: x2 Musculoskeletal History: Reports: None Neurological History: Reports: None Psychiatric History: Reports: Anxiety, Depression, Panic Attack Endocrine/Metabolic History: Reports: None Hematologic History: Reports: None Immunologic History: Reports: None Oncologic (Cancer) History: Reports: None Dermatologic History: Reports: None - Infectious Disease History Infectious Disease History: Reports: Chicken Pox - Past Surgical History Head Surgeries/Procedures: Reports: None Female Surgical History: Reports: Section, Tubal Ligation Other Female Surgeries/Procedures: C/S x2 Social & Family History - Family History Family Medical History: Noncontributory - Tobacco Use Smoking Status *Q: Current Every Day Smoker Years of Tobacco use: 14 Packs/Tins Daily: 0.5 - Caffeine Use Caffeine Use: Reports: Soda - Alcohol Use Date of Last Drink: 06/28/18 - Recreational Drug Use Recreational Drug Use: No - Living Situation & Occupation Living situation: Reports: with Significant Other Occupation: Employed ED ROS GENERAL - Review of Systems Review Of Systems: ROS reveals no pertinent complaints other than HPI. ED EXAM, BEHAVIORAL HEALTH - Physical Exam Exam: See Below Exam Limited By: No Limitations General Appearance: Anxious, Other (crying) Eye Exam: Bilateral Eye: EOMI, Normal Inspection, PERRL Ears: Normal External Exam, Normal Canal, Hearing Grossly Normal, Normal TMs Nose: Normal Inspection, Normal Mucosa, No Blood Throat/Mouth: Normal Inspection, Normal Lips, Normal Teeth, Normal Gums, Normal Oropharynx, Normal Voice, No Airway Compromise Head: Atraumatic, Normocephalic Neck: Normal Inspection, Supple, Non-Tender, Full Range of Motion Respiratory/Chest: No Respiratory Distress, Lungs Clear, Normal Breath Sounds, No Accessory Muscle Use, Chest Non-Tender Cardiovascular: Normal Peripheral Pulses, Regular Rate, Rhythm, No Edema, No Gallop, No JVD, No Murmur, No Rub GI/Abdominal: Normal Bowel Sounds, Soft, Non-Tender, No Organomegaly, No Distention, No Abnormal Bruit, No Mass (Female) Exam: Deferred Rectal (Female) Exam: Deferred Back Exam: Normal Inspection, Full Range of Motion, NT Extremities: Other (right hand/arm and right leg numbness) Neurological: Alert, Normal Mood/Affect, CN II-XII Intact, Normal Cognition, Normal Gait, Normal Reflexes, No Motor/Sensory Deficits, Oriented x 3 Psychiatric: Tearful, Other (anxious and pressure speech) Skin Exam: Warm, Dry, Intact COURSE, BEHAVIORAL HEALTH COMP - Course Vital Signs: Last Vital Signs Temp 99.7 F 06/29/18 11:33 Pulse 103 H 06/29/18 11:33 Resp 20 06/29/18 11:33 BP 123/84 06/29/18 11:33 Pulse Ox 95 06/29/18 11:33 Orders, Labs, Meds: Medications Discontinued Medications Generic Name Dose Route Start Last Admin Trade Name Freq PRN Reason Stop Dose Admin Lorazepam 1 mg 06/29/18 11:53 06/29/18 12:02 Ativan IM 06/29/18 11:54 1 mg ONETIME ONE Administration Departure - Departure Time of Disposition: 14:01 Disposition: Home, Self-Care 01 Condition: Fair Clinical Impression: Anxiety, Panic attack as reaction to stress - Discharge Information *PRESCRIPTION DRUG MONITORING PROGRAM REVIEWED*: No *COPY OF PRESCRIPTION DRUG MONITORING REPORT IN PATIENT NOMAN: No Instructions: Panic Attack, [id number], Living With Anxiety Referrals: Ginette Charles MD [Primary Care Provider] - Forms: ED Department Discharge Additional Instructions: Keep your medications with you Follow up with your primary care facility
== END 2018-06-29 14:01 | disposition home or self-care (01) ==
LOC: DL.ED 11:21
DX: F43.0 Acute stress reaction (principal); F17.210 Nicotine dependence, cigarettes, uncomplicated; Z88.1 Allergy status to other antibiotic agents
CPT/HCPCS: 96372; 99282; J2060

== ENCOUNTER 2018-07-03 13:00 | Emergency (ER) | payer MEDICAID ==
[2018-07-03] MEDS ORDERED: LORazepam 2 MG/ML Syringe IM ONE (14:01)
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
[2018-07-03 15:21] VITALS: BP 105/69
[2018-07-03] MEDS ORDERED: ClonazePAM 0.5 MG Tab PO ONE ×2 (15:57→16:18)
== END 2018-07-03 16:21 | disposition home or self-care (01) ==
LOC: DL.ED 13:00
DX: F41.0 Panic disorder [episodic paroxysmal anxiety] (principal); F41.1 Generalized anxiety disorder; F32.9 Major depressive disorder, single episode, unspecified; Z88.1 Allergy status to other antibiotic agents
CPT/HCPCS: 96372; 99283; A9270; J2060

== ENCOUNTER 2018-11-15 16:12 | Emergency (ER) | payer MEDICAID ==
[2018-11-15 16:31] VITALS: BP 105/50; PULSE 99
[2018-11-15] MEDS ORDERED: ClonazePAM 0.5 MG Tab PO ONE ×2 (16:56→17:51)
--- NOTE | 2018-11-15 17:04 | EDM.PDOCBH ---
ED HPI GENERAL MEDICAL PROBLEM - General Chief Complaint: Behavioral/Psych Time Seen by Provider: 11/15/18 16:50 Source of Information: Reports: Patient, RN, RN Notes Reviewed History Limitations: Reports: Other (Severe panic attack, pressured speech) - History of Present Illness INITIAL COMMENTS - FREE TEXT/NARRATIVE: Pt to ER per law enforcement from [facility] with c/o panic attack. Pt states she has not had access to her anti-anxiety medications. States she has frequent panic attack and her hands go numb, and she has difficulty with speaking. Admits to some SOB and chest pressure. Denies N/V/D, fever or chills. States she was just let go from the [facility] today. Onset: Today, Sudden - Related Data Allergies Allergy/AdvReac Type Severity Reaction Status Date / Time vancomycin Allergy Other Verified 11/15/18 16:26 Home Meds: Home Meds clonazePAM [Clonazepam] 1 mg PO BID PRN 10/20/13 [History] hydrOXYzine pamoate [Hydroxyzine Pamoate] 50 mg PO TID PRN 11/21/16 [History] Past Medical History - Past Health History Medical/Surgical History: Denies Medical/Surgical History HEENT History: Reports: Impaired Vision Other HEENT History: wears glasses Cardiovascular History: Reports: None Respiratory History: Reports: None Gastrointestinal History: Reports: None Genitourinary History: Reports: None 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 Musculoskeletal History: Reports: None Neurological History: Reports: None Psychiatric History: Reports: Addiction, Anxiety, Depression, Panic Attack Endocrine/Metabolic History: Reports: None Hematologic History: Reports: None Immunologic History: Reports: None Oncologic (Cancer) History: Reports: None Dermatologic History: Reports: None - Infectious Disease History Infectious Disease History: Reports: Chicken Pox - Past Surgical History Head Surgeries/Procedures: Reports: None Female Surgical History: Reports: Section, Tubal Ligation Other Female Surgeries/Procedures: C/S x2 Social & Family History - Family History Family Medical History: Noncontributory - Tobacco Use Smoking Status *Q: Current Every Day Smoker Years of Tobacco use: 10 Packs/Tins Daily: 1 - Caffeine Use Caffeine Use: Reports: None - Alcohol Use Days Per Week of Alcohol Use: 1 Number of Drinks Per Day: 10 Total Drinks Per Week: 10 - Recreational Drug Use Recreational Drug Use: No - Living Situation & Occupation Living situation: Reports: Occupation: Employed ED ROS GENERAL - Review of Systems Review Of Systems: ROS reveals no pertinent complaints other than HPI. ED EXAM, BEHAVIORAL HEALTH - Physical Exam Exam: See Below Exam Limited By: Other (Panic attack) General Appearance: Alert, WD/WN, Anxious, Moderate Distress Eye Exam: Bilateral Eye: EOMI, Normal Inspection Ears: Normal External Exam, Hearing Grossly Normal Nose: Normal Inspection Throat/Mouth: Normal Inspection, Normal Voice, No Airway Compromise Head: Atraumatic, Normocephalic Neck: Normal Inspection, Supple, Non-Tender, Full Range of Motion Respiratory/Chest: No Respiratory Distress, Lungs Clear, Normal Breath Sounds, No Accessory Muscle Use, Chest Non-Tender Cardiovascular: Normal Peripheral Pulses, Regular Rate, Rhythm, No Edema, No Gallop, No JVD, No Murmur, No Rub GI/Abdominal: Normal Bowel Sounds, Soft, Non-Tender, No Organomegaly, No Distention, No Abnormal Bruit, No Mass (Female) Exam: Deferred Rectal (Female) Exam: Deferred Back Exam: Normal Inspection, Full Range of Motion, NT Extremities: Normal Inspection, Normal Range of Motion, Non-Tender, No Pedal Edema, Normal Capillary Refill, Other (states numbness in hands) Neurological: Oriented x 3 Psychiatric: Alert, Normal Cognition, Oriented, Depressed Mood, Restless, Tearful, Poor Eye Contact, Pressured Speech Skin Exam: Warm, Dry, Intact, Normal color, No rash COURSE, BEHAVIORAL HEALTH COMP - Course Vital Signs: Last Vital Signs Temp 98.9 F 11/15/18 16:30 Pulse 99 11/15/18 16:30 Resp 22 H 11/15/18 16:30 BP 105/50 L 11/15/18 16:30 Pulse Ox 99 11/15/18 16:30 Orders, Labs, Meds: Medications Discontinued Medications Generic Name Dose Route Start Last Admin Trade Name Pepe PRN Reason Stop Dose Admin Clonazepam 0.5 mg 11/15/18 16:56 11/15/18 17:13 Klonopin PO 11/15/18 16:57 0.5 mg ONETIME ONE Administration Clonazepam 0.5 mg 11/15/18 17:51 11/15/18 18:02 Klonopin PO 11/15/18 17:52 0.5 mg ONETIME ONE Administration Departure - Departure Time of Disposition: 18:58 Disposition: Home, Self-Care 01 Condition: Fair Clinical Impression: Panic attack - Discharge Information *PRESCRIPTION DRUG MONITORING PROGRAM REVIEWED*: No *COPY OF PRESCRIPTION DRUG MONITORING REPORT IN PATIENT NOMAN: No Instructions: Panic Attack, [id number], Living With Anxiety Forms: ED Department Discharge Additional Instructions: Follow up with your primary care facility
== END 2018-11-15 19:05 | disposition home or self-care (01) ==
LOC: DL.ED 16:12
DX: F41.0 Panic disorder [episodic paroxysmal anxiety] (principal); F32.9 Major depressive disorder, single episode, unspecified; F17.210 Nicotine dependence, cigarettes, uncomplicated; Z98.51 Tubal ligation status; Z88.1 Allergy status to other antibiotic agents; Z79.899 Other long term (current) drug therapy
CPT/HCPCS: 99283; A9270

== ENCOUNTER 2019-07-08 23:50 | Emergency (ER) | payer MEDICAID ==
[2019-07-08 23:59] VITALS: BP 134/83; PULSE 114
[2019-07-09] MEDS ORDERED: cefTRIAXone 1 GM, Lidocaine 1% 2.1 ML IM ONE ×2 (00:10)
--- NOTE | 2019-07-09 00:15 | EDM.PDOC ---
ED HPI GENERAL MEDICAL PROBLEM - General Chief Complaint: ENT Problem Stated Complaint: RIGHT SIDE OF FACE SWELLING UP Time Seen by Provider: 07/09/19 00:05 Source of Information: Reports: Patient History Limitations: Reports: No Limitations - History of Present Illness INITIAL COMMENTS - FREE TEXT/NARRATIVE: This 34 yo female patient reports to the ED with swelling on the right side of her face. The patient reports the swelling started today. The patient reports she has been on Amoxicillin for the past 7 days due to a sinus infection with no symptom resolution. The patient admits she has continued to smoke cigarettes throughout the treatment. Onset: Today Duration: Constant Location: Reports: Face (Right maxillary sinus presssure and swelling) Quality: Reports: Other Severity: Moderate Improves with: Reports: None Worsens with: Reports: None Context: Reports: Other Associated Symptoms: Reports: No Other Symptoms - Related Data Allergies Allergy/AdvReac Type Severity Reaction Status Date / Time vancomycin Allergy Other Verified 11/15/18 16:26 Home Meds: Home Meds clonazePAM [Clonazepam] 1 mg PO BID PRN 10/20/13 [History] hydrOXYzine pamoate [Hydroxyzine Pamoate] 50 mg PO TID PRN 11/21/16 [History] Past Medical History - Past Health History Medical/Surgical History: Denies Medical/Surgical History HEENT History: Reports: Impaired Vision Other HEENT History: wears glasses Cardiovascular History: Reports: None Respiratory History: Reports: None Gastrointestinal History: Reports: None Genitourinary History: Reports: None 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 Musculoskeletal History: Reports: None Neurological History: Reports: None Psychiatric History: Reports: Addiction, Anxiety, Depression, Panic Attack Endocrine/Metabolic History: Reports: None Hematologic History: Reports: None Immunologic History: Reports: None Oncologic (Cancer) History: Reports: None Dermatologic History: Reports: None - Infectious Disease History Infectious Disease History: Reports: Chicken Pox - Past Surgical History Head Surgeries/Procedures: Reports: None Female Surgical History: Reports: Section, Tubal Ligation Other Female Surgeries/Procedures: C/S x2 Social & Family History - Family History Family Medical History: Noncontributory - Tobacco Use Smoking Status *Q: Current Every Day Smoker Years of Tobacco use: 17 Packs/Tins Daily: 0.5 - Caffeine Use Caffeine Use: Reports: Soda - Recreational Drug Use Recreational Drug Use: No - Living Situation & Occupation Living situation: Reports: Occupation: Employed ED ROS ENT - Review of Systems Review Of Systems: Comprehensive ROS is negative, except as noted in HPI. ED EXAM, ENT - Physical Exam Exam: See Below Exam Limited By: No Limitations General Appearance: Alert, WD/WN, Mild Distress Eye Exam: Bilateral Eye: EOMI, Normal Inspection, PERRL Ears: Normal External Exam, Normal Canal, Hearing Grossly Normal, Normal TMs Nose: Nasal Discharge, Injected Turbinates (right side) Mouth/Throat: Normal Inspection, Normal Gums, Normal Lips, Normal Oropharynx, Normal Teeth Head: Sinus Tenderness (Right maxillary with swelling) Neck: Normal Inspection, Supple, Non-Tender, Full Range of Motion Respiratory/Chest: No Respiratory Distress, Lungs Clear, Normal Breath Sounds, No Accessory Muscle Use, Chest Non-Tender Cardiovascular: Normal Peripheral Pulses, Regular Rate, Rhythm, No Edema, No Gallop, No JVD, No Murmur, No Rub GI/Abdominal: Normal Bowel Sounds, Soft, Non-Tender, No Organomegaly, No Distention, No Abnormal Bruit, No Mass (Female) Exam: Deferred Rectal (Female) Exam: Deferred Back: Normal Inspection, Full Range of Motion Extremities: Normal Inspection, Normal Range of Motion, Non-Tender, No Pedal Edema, Normal Capillary Refill Neurological: Alert, Oriented, CN II-XII Intact, Normal Cognition, Normal Gait, Normal Reflexes, No Motor/Sensory Deficits Psychiatric: Normal Affect Skin: Warm, Dry, Intact, Normal Color, No Rash Lymphatic: No Adenopathy Course - Vital Signs Last Recorded V/S: Last Vital Signs Temp 37.1 C 07/08/19 23:57 Pulse 114 H 07/08/19 23:57 Resp 18 07/08/19 23:57 BP 134/83 07/08/19 23:57 Pulse Ox 99 07/08/19 23:57 - Orders/Labs/Meds Orders: Active Orders 24 hr Category Date Time Status cefTRIAXone 1 GM,Lidocaine 1% 2.1 ML Med 07/09/19 00:10 Ordered cefTRIAXone [Rocephin] 1 gm Lidocaine 1% [Xylocaine-MPF 1%] 2.1 ml IM ONETIME Departure - Departure Time of Disposition: 00:15 Disposition: Home, Self-Care 01 Condition: Fair Clinical Impression: Right maxillary sinusitis - Discharge Information *PRESCRIPTION DRUG MONITORING PROGRAM REVIEWED*: Not Applicable *COPY OF PRESCRIPTION DRUG MONITORING REPORT IN PATIENT NOMAN: Not Applicable Instructions: Sinusitis, Adult, [id number] Care Plan Goals: The patient was advised of the examination results during the visit. The patient was given an injection of Rocephin while in the ED. The patient was discharged with a script for Keflex (500 mg) #40 to take 1 by mouth 4 times per day for 10 days. The patient was encouraged to follow-up with her primary care facility at the completion of the antibiotics. If the patient has any additional symptoms or concerns, the patient should either return to the emergency department or visit her primary care facility. Sepsis Event Note - Evaluation Sepsis Screening Result: No Definite Risk - Focused Exam Vital Signs: Vital Signs Temp Pulse Resp BP Pulse Ox 07/08/19 23:57 37.1 C 114 H 18 134/83 99 Date Exam was Performed: 07/09/19 Time Exam was Performed: 00:10 - My Orders Last 24 Hours: My Active Orders 07/09/19 00:10 cefTRIAXone 1 GM,Lidocaine 1% 2.1 ML cefTRIAXone [Rocephin] 1 gm Lidocaine 1% [ Xylocaine-MPF 1%] 2.1 ml IM ONETIME - Assessment/Plan Last 24 Hours: My Active Orders 07/09/19 00:10 cefTRIAXone 1 GM,Lidocaine 1% 2.1 ML cefTRIAXone [Rocephin] 1 gm Lidocaine 1% [ Xylocaine-MPF 1%] 2.1 ml IM ONETIME
== END 2019-07-09 00:39 | disposition home or self-care (01) ==
LOC: DL.ED 23:50
DX: J32.0 Chronic maxillary sinusitis (principal); Z88.1 Allergy status to other antibiotic agents; F17.210 Nicotine dependence, cigarettes, uncomplicated
CPT/HCPCS: 96372; 99283; J0696; J2001

== ENCOUNTER 2020-03-04 17:03 | Emergency (ER) | payer MEDICAID ==
[2020-03-04 17:56] VITALS: BP 110/80; PULSE 75
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
== END 2020-03-04 19:46 | disposition home or self-care (01) ==
LOC: DL.ED 17:03
DX: J06.9 Acute upper respiratory infection, unspecified (principal); F17.210 Nicotine dependence, cigarettes, uncomplicated; Z20.822 Contact with and (suspected) exposure to COVID-19; Z88.1 Allergy status to other antibiotic agents
CPT/HCPCS: 87804; 99282; 99283; U0002

== ENCOUNTER 2021-07-04 01:30 | Emergency (ER) | payer MEDICAID ==
[2021-07-04 02:36] VITALS: BP 121/88
[2021-07-04 02:48] LABS: CORONAVIRUS COVID-19 NAA NEGATIVE (NEGATIVE); RESPIRATORY SYNCYTIAL VIR NAA NEGATIVE (NEGATIVE)
[2021-07-04 03:59] VITALS: PULSE 74
== END 2021-07-04 03:52 | disposition home or self-care (01) ==
LOC: DL.ED 01:30
DX: J06.9 Acute upper respiratory infection, unspecified (principal); Z88.1 Allergy status to other antibiotic agents; Z20.822 Contact with and (suspected) exposure to COVID-19
CPT/HCPCS: 0241U; 87081; 87430; 99282; 99283

== ENCOUNTER 2021-09-05 02:40 | Emergency (ER) | payer MEDICAID ==
[2021-09-05] MEDS: Sodium Chloride 0.9% 1,000 ML IV ONE (03:04)
[2021-09-05] MEDS: Metoclopramide 10 MG/2 ML SDV IVPUSH ONE (03:26)
[2021-09-05 03:56] LABS: AMPHETAMINES,URINE NEGATIVE (NEGATIVE); BARBITURATES,URINE NEGATIVE (NEGATIVE); BENZODIAZEPINE,URINE NEGATIVE (NEGATIVE); MDMA (ECSTASY), URINE NEGATIVE (NEGATIVE); METHADONE,URINE NEGATIVE (NEGATIVE); METHAMPHETAMINES,URINE NEGATIVE (NEGATIVE); OPIATES,URINE NEGATIVE (NEGATIVE); PHENCYCLIDINE,URINE NEGATIVE (NEGATIVE); TCA,URINE NEGATIVE (NEGATIVE)
[2021-09-05 03:57] LABS: OXYCODONE,URINE NEGATIVE (NEGATIVE)
[2021-09-05 04:00] LABS: ANION GAP 14.1 mEq/L (7-13); CHLORIDE,CL 102 mmol/L (98-107); SODIUM,NA 142 mmol/L (136-145)
[2021-09-05 04:18] LABS: ESTIMATED GFR 99 mL/min (>=60)
[2021-09-05 08:49] VITALS: BP 117/84; PULSE 88
[2021-09-05] MEDS: Aluminum Hydroxide/Magnesium Hydroxide/Simethicone Susp 30 ML Cup PO ONE (09:01)
[2021-09-05] MEDS: Ondansetron 4 MG/2 ML SDV IV ONE (09:02)
[2021-09-05] MEDS: Famotidine 20 MG/2 ML SDV IVPUSH ONE (09:02)
[2021-09-05] MEDS: Acetaminophen 325 MG Tab PO ONE (09:21)
== END 2021-09-05 10:42 | disposition other institution (70) ==
LOC: DL.ED 02:40
DX: T65.92XA Toxic effect of unspecified substance, intentional self-harm, initial encounter (principal); F32.A Depression, unspecified; F41.9 Anxiety disorder, unspecified; F10.10 Alcohol abuse, uncomplicated; Z88.1 Allergy status to other antibiotic agents; Y90.7 Blood alcohol level of 200-239 mg/100 ml
CPT/HCPCS: 36415; 51702; 70450; 71045; 72125; 80053; 80143; 80179; 80305-QW; 80307; 81001; 81025; 82140; 83605; 83735; 84100; 84443; 85025; 93005; 96361; 96374; 96375; 99285-25; A9270-GY; J2405; J2765; J3490; J7030

== ENCOUNTER 2021-09-05 17:58 | Inpatient (IN) | payer MEDICAID ==
[2021-09-05] MEDS ORDERED: Sodium Chloride 0.9% 10 ML Syringe FLUSH PRN (17:59)
[2021-09-05] MEDS ORDERED: MVI, Adult with Vitamin K 10 ML, Folic Acid 1 MG, Thiamine 100 MG in Lactated Ringers 1... IV ONE ×4 (18:01)
[2021-09-05] MEDS ORDERED: LORazepam 2 MG/ML SDV IVPUSH ONE (18:03)
[2021-09-05] MEDS ORDERED: Famotidine 20 MG/2 ML SDV IVPUSH ONE (18:03)
[2021-09-05] MEDS ORDERED: Metoclopramide 10 MG/2 ML SDV IVPUSH ONE (18:03)
[2021-09-05] MEDS ORDERED: LORazepam 0.5 MG Tab PO PRN (19:42)
[2021-09-05] MEDS ORDERED: LORazepam 2 MG/ML SDV IVPUSH PRN (19:42)
[2021-09-05] MEDS: LORazepam 1 MG Tab PO SCH (20:30)
[2021-09-06] MEDS: LORazepam 1 MG Tab PO SCH ×3 (03:28→13:44)
[2021-09-06 13:18] VITALS: BP 113/71; PULSE 79
== END 2021-09-06 13:48 | disposition home or self-care (01) | DRG 897 ==
LOC: DL.ED 17:58 → DL.MS 19:34 → DL.ED 19:55
PROVIDERS: ADMIT Hospitalist; ATTEND Hospitalist
DX: F10.930 Alcohol use, unspecified with withdrawal, uncomplicated (principal); F10.139 Alcohol abuse with withdrawal, unspecified; F41.9 Anxiety disorder, unspecified; T43.592A Poisoning by other antipsychotics and neuroleptics, intentional self-harm, initial encounter; Z79.899 Other long term (current) drug therapy; H54.7 Unspecified visual loss; F41.0 Panic disorder [episodic paroxysmal anxiety]; F32.A Depression, unspecified; Z88.1 Allergy status to other antibiotic agents
CPT/HCPCS: 36415; 80053; 84484; 85025; 93005; 96365; 96375; 99285-25; A9270-GY; J2060; J2765; J3411; J3490; J7120

== ENCOUNTER 2022-01-03 16:16 | Inpatient (IN) | payer MEDICAID ==
[~2022-01-03 16:16] MED LIST: LORazepam 2 MG/ML SDV IVPUSH ONE; MVI, Adult with Vitamin K 10 ML, Thiamine 100 MG, Folic Acid 1 MG in Lactated Ringers 1... IV ONE; Ondansetron 4 MG/2 ML SDV IV ONE; Pantoprazole 40 MG Vial IVPUSH ONE; Sodium Chloride 0.9% 10 ML Syringe FLUSH PRN
[2022-01-03 16:55] LABS: PTT,PARTIAL THROMBOPLSTIN TIME 24.5 SEC (22.0-34.0)
[2022-01-03 16:58] LABS: ANION GAP 13.6 mEq/L (7-13); CHLORIDE,CL 99 mmol/L (98-107); SODIUM,NA 135 mmol/L (136-145)
[2022-01-03 16:59] LABS: ESTIMATED GFR 122 mL/min (>=60)
[2022-01-03] MEDS ORDERED: LORazepam 2 MG/ML SDV IV PRN (17:50)
[2022-01-03] MEDS ORDERED: Acetaminophen 325 MG Tab PO PRN (17:54)
[2022-01-03] MEDS ORDERED: Ondansetron 4 MG Tab.DIS PO PRN (17:54)
[2022-01-03] MEDS: Sodium Chloride 0.9% 1,000 ML IV SCH (18:03)
[2022-01-03] MEDS ORDERED: Check NICOTINE Patch TRDERM SCH (21:00)
[2022-01-03] MEDS: LORazepam 1 MG Tab PO SCH (21:19)
[2022-01-03 22:17] LABS: MDMA (ECSTASY), URINE NEGATIVE (NEGATIVE); METHADONE,URINE NEGATIVE (NEGATIVE); METHAMPHETAMINES,URINE NEGATIVE (NEGATIVE); OPIATES,URINE NEGATIVE (NEGATIVE)
[2022-01-03 22:18] LABS: AMPHETAMINES,URINE NEGATIVE (NEGATIVE); BARBITURATES,URINE NEGATIVE (NEGATIVE); BENZODIAZEPINE,URINE POSITIVE (NEGATIVE); OXYCODONE,URINE NEGATIVE (NEGATIVE); PHENCYCLIDINE,URINE NEGATIVE (NEGATIVE); TCA,URINE NEGATIVE (NEGATIVE)
[2022-01-04] MEDS: Sodium Chloride 0.9% 1,000 ML IV SCH ×3 (01:43→17:50)
[2022-01-04] MEDS: LORazepam 1 MG Tab PO SCH ×3 (04:52→22:08)
[2022-01-04] MEDS: Pantoprazole 40 MG Tab.CR PO SCH ×2 (04:53→05:03)
[2022-01-04 06:53] LABS: ANION GAP 9.5 mEq/L (7-13)
[2022-01-04] MEDS: Multivitamin Tab PO SCH (09:59)
[2022-01-04] MEDS: Thiamine 100 MG Tab PO SCH (09:59)
[2022-01-04] MEDS: Folic Acid 1 MG Tab PO SCH (09:59)
[2022-01-04] MEDS: Nicotine 14 MG/24 Hr Patch TRDERM SCH (10:00)
[2022-01-04] MEDS ORDERED: Escitalopram 10 MG Tab PO SCH (21:00)
[2022-01-04] MEDS ORDERED: Check NICOTINE Patch TRDERM SCH (21:00)
[2022-01-05] MEDS: Pantoprazole 40 MG Tab.CR PO SCH (06:13)
[2022-01-05] MEDS: LORazepam 1 MG Tab PO SCH (06:13)
[2022-01-05 08:12] VITALS: BP 111/68; PULSE 70
[2022-01-05] MEDS: Thiamine 100 MG Tab PO SCH (08:47)
[2022-01-05] MEDS: Multivitamin Tab PO SCH (08:47)
[2022-01-05] MEDS: Folic Acid 1 MG Tab PO SCH (08:47)
[2022-01-05] MEDS: Nicotine 14 MG/24 Hr Patch TRDERM SCH (08:48)
== END 2022-01-05 10:15 | disposition home or self-care (01) | DRG 897 ==
LOC: DL.ED 16:16 → DL.MS 17:23
PROVIDERS: ADMIT Internal Medicine; ATTEND Internal Medicine
DX: F10.930 Alcohol use, unspecified with withdrawal, uncomplicated (principal); F10.230 Alcohol dependence with withdrawal, uncomplicated; F41.9 Anxiety disorder, unspecified; F43.10 Post-traumatic stress disorder, unspecified; F17.210 Nicotine dependence, cigarettes, uncomplicated; H54.7 Unspecified visual loss; Z98.51 Tubal ligation status; Z88.1 Allergy status to other antibiotic agents; Z79.899 Other long term (current) drug therapy
CPT/HCPCS: 36415; 80053; 80307; 83735; 85025; 85610; 85730; C9113; J2060; J2405; J3411; J7120; 80305-QW; 81003; 81025; 96365; 96375; 99285-25; A9270-GY; J3490; J7030